=== PATIENT | female | born 1950 | race Caucasian/White ===

== ENCOUNTER 2020-07-31 10:22 | Emergency (ER) | payer OTHER ==
[~2020-07-31] VITALS: Ht 152.4 cm; Wt 90.7 kg
--- NOTE | 2020-07-31 10:25 | NUR ---
Placed in room 3 . Placed on cardiac cath rn, blood pressure machine and pulse oximeter. To gown for exam. Side rails up.
--- NOTE | 2020-07-31 10:30 | NUR ---
Pt bib EMS from home with c/o nose bleed x2 hours. Reports h/o a-fib, currently taking coumadin. V/S stable, pt is afebrile. Currently resting in bed, will continue to monitor.
[2020-07-31 10:35] VITALS: BP_SYST 148
--- NOTE | 2020-07-31 10:35 | NUR ---
ER Dr. Mohr at bedside examining patient.
--- NOTE | 2020-07-31 10:39 | NUR ---
Lab at bedside for blood draw.
[2020-07-31] MEDS ORDERED: TRANEXAMIC ACID 1,000 MG/10 ML VIAL TP ONE (10:45)
[2020-07-31] MEDS ORDERED: ONDANSETRON 4 MG ODT TAB PO ONE (10:45)
[2020-07-31 10:54] LABS: BASOPHILS % (AUTO) 0.6 % (0.0-2.0); EOSINOPHILS # (AUTO) 0.1 K/uL (0.0-0.4); EOSINOPHILS % (AUTO) 1.1 % (0.0-4.0); HEMATOCRIT 42.8 % (36-48); HEMOGLOBIN 14.4 g/dL (12.0-16.0); LYMPHOCYTES # (AUTO) 1.5 K/uL (1.0-5.5); LYMPHOCYTES % (AUTO) 18.9 % (20.5-51.5); MEAN CORPUSCULAR HEMOGLOBIN 31 pg (27-31); MEAN CORPUSCULAR HGB CONC 34 % (32-36); MEAN CORPUSCULAR VOLUME 92 fL (79.0-98.0); MONOCYTES # (AUTO) 0.3 K/uL (0.0-1.0); MONOCYTES % (AUTO) 4.3 % (1.7-9.3); NEUTROPHILS # (AUTO) 5.9 K/uL (1.8-7.7); NEUTROPHILS % (AUTO) 75.1 % (40.0-70.0); PLATELET COUNT (AUTO) 175 K/uL (130-430); RED BLOOD CELL COUNT(AUTO) 4.66 MIL/uL (4.2-6.2); RED CELL DISTRIBUTION WIDTH 13.9 % (9.0-15.0); WHITE BLOOD COUNT (AUTO) 7.8 K/uL (4.8-10.8)
[2020-07-31 11:34] LABS: PROTHROMBIN TIME 40.4 SECS (9.5-12.5)
[2020-07-31 11:35] LABS: INR 4.1 (0.8-1.2)
[2020-07-31 12:00] VITALS: BP_SYST 148
--- NOTE | 2020-07-31 12:00 | NUR ---
Patient given written and verbal discharge instructions and verbalizes understanding. ER MD discussed with patient the results and treatment provided. Patient in stable condition. ID arm band removed. No prescriptions given given. Patient educated on pain management and to follow up with PMD. Pain Scale 0. Opportunity for questions provided and answered. Medication side effect fact sheet provided.
== END 2020-07-31 12:00 | disposition home or self-care (01) ==
LOC: SED 10:22
DX: R04.0 Epistaxis (principal); I48.91 Unspecified atrial fibrillation
CPT/HCPCS: 30903; 36415; 85025; 85610; 85730; 99284; J3490; Q0162

== ENCOUNTER 2020-08-02 13:57 | Emergency (ER) | payer OTHER ==
[~2020-08-02] VITALS: Ht 154.9 cm; Wt 95.3 kg
--- NOTE | 2020-08-02 14:00 | NUR ---
Patient to ER bed 5 to gown for evaluation. Side rails up.
--- NOTE | 2020-08-02 14:05 | NUR ---
Pt walked in to ER for re-check. Was here on 07/31/20 for nosebleed, nasal packing placed. Pt here for removal as per MD instructions. V/S stable, pt is afebrile. Currently sitting at bedside, will continue to monitor.
--- NOTE | 2020-08-02 14:11 | NUR ---
ER at bedside examining patient.
[2020-08-02 14:12] VITALS: BP_SYST 156
[2020-08-02] MEDS ORDERED: OXYMETAZOLINE HCL 0.05% NASAL SPRAY NS ONE ×2 (14:15→14:29)
--- NOTE | 2020-08-02 14:40 | NUR ---
Patient given written and verbal discharge instructions and verbalizes understanding. ER MD discussed with patient the results and treatment provided. Patient in stable condition. ID arm band removed. Rx of Flonase given. Patient educated on pain management and to follow up with PMD. Pain Scale 0. Opportunity for questions provided and answered. Medication side effect fact sheet provided.
[2020-08-02 14:55] VITALS: BP_SYST 156
== END 2020-08-02 14:40 | disposition home or self-care (01) ==
LOC: SED 13:57
DX: R04.0 Epistaxis (principal); J34.89 Other specified disorders of nose and nasal sinuses
CPT/HCPCS: 99282

== ENCOUNTER 2023-01-24 16:16 | Emergency (ER) | payer OTHER ==
[~2023-01-24] VITALS: Ht 152.4 cm; Wt 95.3 kg
[2023-01-24 16:16] VITALS: BP_SYST 109
--- NOTE | 2023-01-24 16:16 | NUR ---
PT BIBA ACLS FOR S/S OF STROKE. PT WAS GARDEINN\\\ Addendum: 01/24/23 at 1731 by [email or web address] -GARDENING WHEN THE EVENT OCCURED. PT HAS LEFT SIDED DEFICITS WITH NUMBNESS AND DECREASED FEELLING TO LEFT ARM AND FACE. PT HAS NEW ONSET DYSARTHIA, SPEECH IS SLOW AND PT IS AAOX4. RESP E/U. ON R/A. DENIES N/V/D/C. DISTAL PULSES NORMAL. SKIN WARM, INTACT, NO EDEMA. PT HAS LAC 18G IV CATH PLACED IN THE FIELD. SITE FLUSHED AND PATENT.
--- NOTE | 2023-01-24 16:20 | NUR ---
Patient transported to radiology via GURNEY, accompanied by RN AND CT STAFF.
--- NOTE | 2023-01-24 16:21 | NUR ---
accucheck 148
--- NOTE | 2023-01-24 16:35 | NUR ---
PT BACK FROM CT SCAN AND TAKEN TO BED 1 AND PLACED ON MONITOR. BS 148. BLOOD DRAWN AND TAKEN TO LAB.
[2023-01-24] MEDS ORDERED: iohexoL 350 mgI/mL, 100 ML INFUS..BTL IV ONE (16:38)
--- NOTE | 2023-01-24 16:50 | NUR ---
SECOND LINE PLACED. # 20 gauge angiocath placed to RFA. Use of asceptic technique. Opsite placed over site. Blood return noted. Flushed with 10 cc of normal saline. No evidence of infiltration noted. Patient tolerated well.
[2023-01-24 16:54] LABS: BASOPHILS # (AUTO) 0.1 K/uL (0.0-0.2); BASOPHILS % (AUTO) 0.7 % (0.0-2.0); EOSINOPHILS # (AUTO) 0.1 K/uL (0.0-0.4); EOSINOPHILS % (AUTO) 1.1 % (0.0-4.0); HEMATOCRIT 42.6 % (36-48); LYMPHOCYTES # (AUTO) 1.8 K/uL (1.0-5.5); MEAN CORPUSCULAR HEMOGLOBIN 29 pg (27-31); MEAN CORPUSCULAR HGB CONC 33 % (32-36); MEAN CORPUSCULAR VOLUME 89 fL (79.0-98.0); MONOCYTES # (AUTO) 0.5 K/uL (0.0-1.0); MONOCYTES % (AUTO) 5.7 % (1.7-9.3); NEUTROPHILS # (AUTO) 6.2 K/uL (1.8-7.7); NEUTROPHILS % (AUTO) 71.5 % (40.0-70.0); PLATELET COUNT (AUTO) 142 K/uL (130-430); RED BLOOD CELL COUNT(AUTO) 4.79 MIL/uL (4.2-6.2); RED CELL DISTRIBUTION WIDTH 15.4 % (9.0-15.0); WHITE BLOOD COUNT (AUTO) 8.6 K/uL (4.8-10.8)
[2023-01-24 16:58] LABS: ANION GAP 8 (5-15); CALCIUM 8.9 mg/dL (8.4-11.0); CHLORIDE 103 mmol/L (98-107); CREATININE 1.14 mg/dL (0.55-1.30); GLUCOSE 138 mg/dL (70-99); UREA NITROGEN, BLOOD 27 mg/dL (8-21)
[2023-01-24 17:00] LABS: INR 2.2 (0.8-1.2); PROTHROMBIN TIME 21.6 SECS (9.5-12.5)
--- NOTE | 2023-01-24 17:00 | NUR ---
PT RECEIVING TELE-NEURO EVAL AT THIS TIME.
[2023-01-24 17:11] LABS: ALANINE AMINOTRANSFERASE 32 U/L (12-78); ALBUMIN 3.1 g/dL (3.4-4.8); ASPARTATE AMINOTRANSFERASE 22 U/L (10-37); TOTAL BILIRUBIN 0.7 mg/dL (0.0-1.0)
--- NOTE | 2023-01-24 18:24 | NUR ---
KP MD Key called to discuss pt care. Informed MD Dixon.
--- NOTE | 2023-01-24 19:02 | NUR ---
URINE OBTAINED AND TAKEN TO LAB.
[2023-01-24 19:03] LABS: BILIRUBIN,URINE NEGATIVE (NEGATIVE); BLOOD, URINE NEGATIVE (NEGATIVE); CLARITY/URINE CLOUDY (CLEAR); COLOR,URINE YELLOW (YELLOW); GLUCOSE,URINE NEGATIVE (NEGATIVE); KETONES,URINE NEGATIVE (NEGATIVE); LEUKOCYTE ESTERASE ,URINE NEGATIVE (NEGATIVE); NITRITE, URINE NEGATIVE (NEGATIVE); PH,URINE 6.5 (5.0-8.0); PROTEIN URINE 1+ (NEGATIVE); UROBILINOGEN,URINE 0.2 (0.2-1.0)
[2023-01-24] MEDS ORDERED: LEVO75TA7 PO (19:11)
[2023-01-24] MEDS ORDERED: ACYC400T19 PO (19:11)
[2023-01-24] MEDS ORDERED: FURO-150 PO (19:11)
[2023-01-24] MEDS ORDERED: AMIO200T66 PO (19:11)
[2023-01-24] MEDS ORDERED: LOSA100T4 PO (19:11)
[2023-01-24] MEDS ORDERED: WARF-66 PO (19:11)
[2023-01-24] MEDS ORDERED: SPIR25TA PO (19:11)
[2023-01-24] MEDS ORDERED: LEVA1.2527 INH (19:11)
[2023-01-24 19:17] LABS: BACTERIA,URINE FEW /HPF (None Seen); RBC,URINE NONE SEEN /HPF (0-3); WBC,URINE 0-3 /HPF (0-3)
[2023-01-24 19:18] LABS: MUCUS,URINE None Seen /LPF (None Seen)
--- NOTE | 2023-01-24 19:27 | NUR ---
PT ENDORSED TO MADH[facility] LEDBETTER ALL QUESTIONS AND CONCERNS ADDRESSED.
--- NOTE | 2023-01-24 20:14 | NUR ---
CALLED [facility] REPORT GIVEN TO AXEL DHALIWAL 2013
--- NOTE | 2023-01-24 20:55 | NUR ---
REPORT GIVEN TO [facility] PICKED UP PT TO TAKE TO [facility]. SON AT BEDSIDE VSS, NAD, EVEN UNLABORED RR. PT DID COMPLAIN OF A HEADACHE BEFORE LEAVING. 5 OUT OF 10 PAIN.
[2023-01-24 22:03] VITALS: BP_SYST 136
--- NOTE | 2023-01-24 22:22 | NUR ---
Patient to be transferred to [facility]. Is being transferred due to higher level of care. Receiving facility has accepting physician and available space. ER physician has signed transfer form. Patient or responsible green party has agreed to transfer and signed form. Patient belongings inventoried and will be sent with patient. Copy of nursing notes, lab reports, EKG, Physicians Orders and X-rays to be sent with patient. Report called to AXEL DHALIWAL at receiving facility. Receiving physician is DR CURRAN. [facility] ambulance service has been called for transfer. ETA is [id number].
== END 2023-01-24 22:22 | disposition short-term general hospital (02) ==
LOC: SED 16:16
DX: I63.9 Cerebral infarction, unspecified (principal); R53.1 Weakness; R42 Dizziness and giddiness; R20.2 Paresthesia of skin; I10 Essential (primary) hypertension; Z88.1 Allergy status to other antibiotic agents; Z88.2 Allergy status to sulfonamides; Z79.899 Other long term (current) drug therapy; Z20.822 Contact with and (suspected) exposure to COVID-19
CPT/HCPCS: 99285; 70496; 71045; 87426; 80053; 81000; 85025; 85610; 85730; 86886; 86900; 86901; 84484; 36415; 93005; 70498; 70450; 76376; Q9967